=== PATIENT | male | born 1965 | race Hispanic/Latino ===

== ENCOUNTER → 2016-10-14 | Outpatient (CLI) | payer BC ==
[2016-10-14 13:33] LABS: BASOPHILS # (AUTO) 0.04 10*3/UL; BASOPHILS % (AUTO) 0.4 % (0-1); EOSINOPHILS % (AUTO) 3.5 % (0-8); HEMATOCRIT 55.1 % (42.0-52.0); HEMOGLOBIN 18.1 g/dL (14.0-18.0); IMM GRAN % (AUTO) 0.4 % (0-5); IMM GRAN# (AUTO) 0.04 10*3/UL; LYMPHOCYTES # (AUTO) 1.49 10*3/uL; LYMPHOCYTES % (AUTO) 15.1 % (10-50); MEAN CORPUSCULAR HEMOGLOBIN 27.4 PG (27-31); MEAN CORPUSCULAR HGB CONC 32.8 g/dL (33-37); MEAN PLATELET VOLUME 9.1 FL (7.4-12.2); MONOCYTES # (AUTO) 0.93 10*3/UL (0.3-0.8); MONOCYTES % (AUTO) 9.4 % (5-15); NEUTROPHILS # (AUTO) 7.03 10*3/UL; NEUTROPHILS % (AUTO) 71.2 % (50-80); RDW COEFFICIENT OF VARIATION 16.5 % (11.5-14.5); WHITE BLOOD COUNT 9.88 10^3/uL (4.8-10.8)
[2016-10-14 13:38] LABS: PLATELET MORPHOLOGY COMMENT NORMAL MORPHOLOGY (NORM)
[2016-10-14 14:21] LABS: ASPARTATE AMINO TRANSFERASE 48 IU/L (21-57); BILIRUBIN,TOTAL 0.9 mg/dL (0.3-1.2); BLOOD UREA NITROGEN 13 mg/dL (7-22); BUN/CREATININE RATIO 16.25 (6-20); CALCIUM 8.1 mg/dL (8.7-10.7); CHLORIDE 103 meq/L (98-112); CREATININE 0.8 mg/dL (0.70-1.50); EST GLOMERULAR FILTRATION > 60 (>60 ml/min/1.73m(2)); GLUCOSE 140 mg/dL (78-110); POTASSIUM 4.2 meq/L (3.8-5.2); SODIUM 137 meq/L (135-145); TOTAL PROTEIN 6.9 g/dL (6.1-8.0)
== END ==
LOC: LAB 13:15
PROVIDERS: ATTEND Urology
DX: R97.20 Elevated prostate specific antigen [PSA] (principal); E29.1 Testicular hypofunction
CPT/HCPCS: 36415; 80053; 84153; 84403; 85025

== ENCOUNTER → 2016-11-25 | Outpatient (CLI) | payer BC ==
[2016-11-25 09:38] LABS: BASOPHILS # (AUTO) 0.07 10*3/UL; BASOPHILS % (AUTO) 0.6 % (0-1); EOSINOPHILS % (AUTO) 1.5 % (0-8); HEMATOCRIT 58.5 % (42.0-52.0); HEMOGLOBIN 18.9 g/dL (14.0-18.0); IMM GRAN % (AUTO) 0.3 % (0-5); IMM GRAN# (AUTO) 0.04 10*3/UL; LYMPHOCYTES # (AUTO) 2.07 10*3/uL; LYMPHOCYTES % (AUTO) 17.9 % (10-50); MEAN CORPUSCULAR HEMOGLOBIN 26.5 PG (27-31); MEAN CORPUSCULAR HGB CONC 32.3 g/dL (33-37); MEAN PLATELET VOLUME 9.3 FL (7.4-12.2); MONOCYTES # (AUTO) 1.35 10*3/UL (0.3-0.8); MONOCYTES % (AUTO) 11.6 % (5-15); NEUTROPHILS # (AUTO) 7.89 10*3/UL; NEUTROPHILS % (AUTO) 68.1 % (50-80); RDW COEFFICIENT OF VARIATION 17.5 % (11.5-14.5); WHITE BLOOD COUNT 11.59 10^3/uL (4.8-10.8)
[2016-11-25 09:41] LABS: PLATELET MORPHOLOGY COMMENT NORMAL MORPHOLOGY (NORM); RED BLOOD COUNT 7.12 10^6/uL (4.70-6.10)
[2016-11-25 09:47] LABS: ASPARTATE AMINO TRANSFERASE 45 IU/L (21-57); BILIRUBIN,TOTAL 0.8 mg/dL (0.3-1.2); BLOOD UREA NITROGEN 22 mg/dL (7-22); CHLORIDE 100 meq/L (98-112); EST GLOMERULAR FILTRATION > 60 (>60 ml/min/1.73m(2)); GLUCOSE 134 mg/dL (78-110); POTASSIUM 4.4 meq/L (3.8-5.2); SODIUM 138 meq/L (135-145); TOTAL PROTEIN 7.4 g/dL (6.1-8.0)
== END ==
LOC: LAB 09:22
PROVIDERS: ATTEND Urology
DX: K92.1 Melena (principal); E29.1 Testicular hypofunction; Z12.5 Encounter for screening for malignant neoplasm of prostate
CPT/HCPCS: 36415; 80053; 84153; 84403; 85025